=== PATIENT | male | born 1965 | race African-American/Black ===

== ENCOUNTER 2020-04-13 12:52 | Day surgery (SDC) | payer OTHER ==
[2020-04-13] MEDS ORDERED: Xylocaine 1% Vial 30 ML PF IJ ONE (12:53)
[2020-04-13] MEDS ORDERED: Decadron 4 MG INJ IV ONE (12:53)
[2020-04-13] MEDS ORDERED: Sodium Chloride 0.9(Preservative Free) 10 ML IJ ONE (12:53)
[2020-04-13] MEDS ORDERED: Lactated Ringers 1,000 ML IV ONE (15:31)
--- NOTE | 2020-04-13 17:16 | XRAY ---
Indication: Cervical SPARKLE. Intraoperative fluoroscopy was provided for 29 seconds. 2 digital spot images submitted for interpretation demonstrates midline posterior needle tip projecting posterior to cervical thoracic junction. Small amount of contrast injected for needle tip placement. Correlate with intraoperative findings/report.
--- NOTE | 2020-04-13 17:18 | XRAY ---
29 seconds fluoroscopy time in surgery for cervical SPARKLE.
== END 2020-04-13 15:27 | disposition home or self-care (01) ==
LOC: SDC-PAIN 12:52
PROVIDERS: ATTEND Psychiatry & Neurology Pain Medicine
DX: M54.12 Radiculopathy, cervical region (principal); I10 Essential (primary) hypertension; D64.9 Anemia, unspecified; M41.9 Scoliosis, unspecified; Z79.899 Other long term (current) drug therapy
CPT/HCPCS: 62321; 72040; 77003; J1100; J2001; Q9966

== ENCOUNTER 2020-06-29 11:06 | Day surgery (SDC) | payer OTHER ==
[2020-06-29] MEDS ORDERED: Depo-Medrol 40 MG/ML IM ONE (11:07)
[2020-06-29] MEDS ORDERED: Xylocaine-Mpf 2% 5 Ml Vial IJ ONE (11:07)
[2020-06-29] MEDS ORDERED: Ketamine HCl 50 MG/ML ONE (13:12)
[2020-06-29] MEDS ORDERED: DIPRIVAN 200 MG/20 ML IV ONE (13:12)
--- NOTE | 2020-06-29 14:07 | XRAY ---
9 seconds fluoroscopy time in surgery for bilateral L4-S1 MBB.
--- NOTE | 2020-06-29 14:08 | XRAY ---
Indication: Bilateral L4-S1 MBB. Intraoperative fluoroscopy provided for 9 seconds. Single digital spot image submitted for interpretation demonstrate posterior needle tips projecting over the expected left and right L4-S1 nerve roots. Correlate with intraoperative findings/report.
[2020-06-29] MEDS ORDERED: Lactated Ringers 1,000 ML IV ONE (16:36)
== END 2020-06-29 13:43 | disposition home or self-care (01) ==
LOC: SDC-PAIN 11:06
PROVIDERS: ATTEND Psychiatry & Neurology Pain Medicine
DX: M47.816 Spondylosis without myelopathy or radiculopathy, lumbar region (principal); I10 Essential (primary) hypertension; D64.9 Anemia, unspecified; M41.9 Scoliosis, unspecified; Z79.899 Other long term (current) drug therapy
CPT/HCPCS: 64493; 64494; 72020; 77002; J1030; J2704